=== PATIENT | male | born 1970 | race Caucasian/White ===

== ENCOUNTER 2021-06-16 21:24 | Emergency (ER) | payer MEDICAID ==
[~2021-06-16] VITALS: Ht 193 cm; Wt 113.4 kg
[2021-06-16] MEDS ORDERED: Voltaren100 GM TOP (22:41)
[2021-06-16] MEDS ORDERED: CYCL10 PO (22:41)
[2021-06-17] MEDS ORDERED: OMEP20ER PO (23:23)
[2021-06-17] MEDS ORDERED: NITROGLYCERIN0.4 M3 SL (23:23)
[2021-06-17] MEDS ORDERED: METOPROLOL SUCC25 MG PO (23:23)
[2021-06-17] MEDS ORDERED: ZESTRIL40 M1 PO (23:23)
[2021-06-17] MEDS ORDERED: LOW DOSE ASPIRI81 M1 PO (23:23)
[2021-06-17] MEDS ORDERED: EZETIMIBE10 M6 PO (23:23)
[2021-06-17] MEDS ORDERED: LIPITOR80 MG PO (23:23)
== END 2021-06-16 23:07 | disposition home or self-care (01) ==
LOC: ER 21:24
DX: S16.1XXA Strain of muscle, fascia and tendon at neck level, initial encounter (principal); M62.838 Other muscle spasm; X58.XXXA Exposure to other specified factors, initial encounter; I25.2 Old myocardial infarction
CPT/HCPCS: 99283; A9270